=== PATIENT | male | born 1970 | race Caucasian/White ===

== ENCOUNTER 2018-12-12 08:27 | Emergency (ER) | payer OTHER, SELFPAY ==
[2018-12-12 08:28] VITALS: BP 145/101; PULSE 113; RESP 16; TEMP 36.3; O2SAT 100; BMI 22.7
--- NOTE | 2018-12-12 08:56 | ED.DCSUM_ITS ---
- ER Visit Summary Date of Service: 12/12/18 Chief Complaint: Multiple complaints History of Present Illness: The patient is a 48 M who presents the emergency department stating that he has multiple issues and reasons for being here. He states that none of them are a true emergency but he does not have a primary care physician so here I am. First he states that a year ago he got into a [employer] plant and got thorns in his skin. He states they are still coming out of him. States he has a friend that was a [place] medic who tells him that he should put lotion on to help soften the skin and then to come out. He states that the pain is unbearable after this year of dealing with that he wants it o ut. Second issue is that he had to walk 10 miles yesterday and states that he feels like he got heat exhaustion. He states he has been drinking water and his headache is better but he still feels lightheaded. Third issue is that for the past several years she has had epigastric pain. Certain foods make it worse. He states he thought it was stomach ulcers but the other day it was significantly worse. He has been taking Tums. No chest pain shortness of breath. He is a smoker. Denies any history of pancreatitis. Physical Examination: Afebrile vital signs stable Gen: Well-nourished well-developed Head: Normocephalic atraumatic Eyes: Perrl EOMI ENT: TMs clear no rhinorrhea moist mucous membranes Neck: Supple no lymphadenopathy no JVD nontender CVS: Regular rate rhythm no murmurs normal S1-S2 Respiratory: No distress clear to auscultation bilaterally chest nontender Abdomen: Soft nontender nondistended normal bowel sounds no masses Back: Nontender Extremity: Nontender no edema Skin: Normal color no rash Neuro: alert orientated ?3 CN II-XII intact normal strength sensation reflexes gait cerebellar Psych: Normal affect normal mood Test Results: White blood cell count is normal. Chemistries with a creatinine 1.64. Lipase is 410. Total body CK 155. CT and pelvis negative. Emergency Department Course and Treatment: IV fluids. Patient decided that he did not wish to wait for results so he decided to leave. He did sign out AMA. Impression: 1. Lightheadedness 2. GERD 3. Elevated lipase 4. Left AGAINST MEDICAL ADVICE This note was generated with Dragon dictation software. It may contain incorrect words, spelling, and punctuation that were not noted in review of the chart prior to signing ED Disposition - Plan for ED Patient: Disposition: Against Medical Advice Referrals: NOT,DEFINED [NON-STAFF] -
[2018-12-12 09:21] LABS: Absolute Lymphocyte Count 3.23 X10^3/ul (0.83-4.51); Absolute Neutrophil Count 4.9 X10^3/uL (2.0-7.7); Basophil# 0.03 X10^3/uL; Basophil% 0.3 % (0-1); Eosinophil# 0.33 X10^3/uL; Eosinophils% 3.5 % (0-5); Hematocrit 43.3 % (40-54); Hemoglobin 14.6 g/dl (13.0-16.5); Lymphocyte # 3.23 X10^3/ul (4.0); Mean Corp Hgb Conc 33.7 g/gl (32-36); Mean Corpuscular Hgb 27.5 pg (27.0-32.0); Mean Corpuscular Volume 81.7 fL (80-94); Mean Platelet Vol. 8.3 fl (6.2-12.0); Monocyte# 0.94 X10^3/uL; Monocyte% 9.9 % (0-10); Neutrophil # 4.94 X10^3/uL (2.7-7.7); Neutrophil % 52.1 % (47-70); Platelet Count 287 K/mm3 (150-450); RBC Distribution Width CV 14.8 % (11.6-14.6); RBC Distribution Width SD 44.8 fl (35.1-43.9); White Blood Count 9.5 K/mm3 (4.4-11.0)
[2018-12-12] MEDS: 0.9% Normal Saline 1,000 ML 1000 ML IV (09:21)
[2018-12-12 09:24] LABS: POSITIVE COUNT NO; POSITIVE DIFFERENTIAL NO; POSITIVE MORPHOLOGY NO
[2018-12-12 09:38] LABS: AST(SGOT) 18 U/L (15-37); Alanine Aminotransfer ALT/SGPT 20 U/L (16-61); Albumin, Serum 3.2 g/dL (3.2-5.0); Alkaline Phosphatase 85 U/L (45-117); Anion Gap 8 (5-15); BUN 16 mg/dL (7-18); BUN/Creat Ratio 9.8 RATIO (10-20); Bilirubin, Direct 0.05 mg/dL (0.00-0.30); CPK Total, Creatine Kinase 155 U/L (39-308); Chloride 102 mmol/L (98-107); Creatinine, Serum 1.64 mg/dL (0.70-1.30); EST Glomerular Filtration Rate 48 mL/min (>60); Est Glom Filt Rate - Afr Amer 58 mL/min (>60); Globulin 4.6 g/dL (2.2-4.2); Glucose 109 mg/dL (74-106); Lipase 410 U/L (73-393); Potassium 3.4 mmol/L (3.5-5.1); Protein, Total 7.8 g/dL (6.4-8.2); Sodium Level 138 mmol/L (136-145)
--- NOTE | 2018-12-12 09:47 | CT_ITS ---
STUDY: CT ABDOMEN AND PELVIS WITHOUT CONTRAST REASON FOR EXAM: Male, 48 years old. Abdominal pain. Elevated lipase levels. RADIATION DOSAGE (If Supplied By Facility): CTDIvol = ( 8.03 ) mGy, DLP = ( 310.38 ) mGycm TECHNIQUE: Transaxial images were obtained from the dome of the diaphragm to the symphysis pubis without oral contrast, and without intravenous contrast. Sagittal and coronal images were reconstructed. Individualized dose optimization techniques were used for this CT. COMPARISON: None. FINDINGS: The visualized lung bases are unremarkable. The visualized portions of the heart are within normal limits. Normal liver. The gallbladder is contracted. Normal spleen. Normal pancreas. Normal bilateral adrenal glands. Normal right kidney. Subcentimeters cyst in the upper pole of the left kidney. Normal visualized stomach. Normal small intestine. Normal colon. The appendix is visualized and appears normal. There is scattered atherosclerotic calcification of the abdominal aorta, without a demonstrated aneurysm. Normal inferior vena cava. Normal retroperitoneum. Normal urinary bladder. Normal abdominal wall. Normal osseous structures. CT/Abdomen/Pelvis W IV Cont ONLY IMPRESSION: Normal unenhanced CT of the abdomen and pelvis. Electronically Signed: Jimenez Flores, at 10:56 EDT , Service support ,
== END 2018-12-12 11:11 | disposition left against medical advice (07) ==
PROVIDERS: Emergency Provider Emergency Medicine
DX: R42 Dizziness and giddiness (principal); K21.9 Gastro-esophageal reflux disease without esophagitis; R74.8 Abnormal levels of other serum enzymes; F17.200 Nicotine dependence, unspecified, uncomplicated
CPT/HCPCS: 74177; 80048; 80076; 82550; 83690; 85025; 96360; 99282; J7030; Q9967; A4216

== ENCOUNTER 2019-08-02 10:30 | Emergency (ER) | payer SELFPAY ==
[2019-08-02 10:31] VITALS: BP 161/107; PULSE 124; RESP 16; TEMP 36.6; O2SAT 99; BMI 22.6
--- NOTE | 2019-08-02 10:43 | RAD_ITS ---
STUDY: X-RAY - RIGHT HAND REASON FOR EXAM: Male, 49 years old. Injury Gabo, pain mid posterior hand EXAM DESCRIPTION: CLINICAL HISTORY: 49 years Male, Injury Gabo, pain mid posterior hand COMPARISON: None FINDINGS: Studies of the right hand in 3 projections shows no evidence of fracture, dislocation, or bony destruction. RAD/Hand Min 3 Views IMPRESSION: Normal right hand. Electronically Signed: Raheel Lulu, at 11:12 EST Tel , Service support ,
--- NOTE | 2019-08-02 10:58 | ED.VISSUMM ---
- ER Visit Summary Date of Service: 08/02/19 Chief Complaint: [Injury to right hand] History of Present Illness: The patient is a 49 M [presents the emergency department with an injury to the right hand that occurred 5 days ago. Patient states that he was splitting wood outside with an ax and developed some discomfort in the hand that he thought it was related to just being cold. Patient developed some swelling in the hand. Patient states the swelling is gone down but continues to have pain when flexing and extending his digits. 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 He is right-hand dominant. Patient states that he has had prior fracture of the right hand about 10 years ago. Patient otherwise has no medical history.] Physical Examination: [HEENT-PERRLA, EOMI. Cranial nerves II through XII grossly intact. TMs clear. Mucous membranes moist. No adenopathy. Cardiovascular-regular rate and rhythm without murmur or ectopy Lungs-clear to auscultation, chest wall stable without crepitus or subcu emphysema Abdomen-normoactive bowel sounds, soft, nontender, no rebound or rigidity, no peritoneal signs. Extremities-intact ?4, normal range of motion, normal pulses, atraumatic. Right hand-there is a mild soft tissue swelling over the dorsum of the right hand over the areas of the third and fourth metacarpal bases. No ecchymosis or bruising noted. Patient has normal flexion-extension of all digits. He has normal sensation.] Test Results: [X-rays of the right hand read by myself as no acute fractures.] Emergency Department Course and Treatment: [Patient will be given an Anthony wrap. Patient was given a prescription for naproxen. Patient will be given a referral to orthopedics for follow-up.] Treatment Plan: [Follow-up with orthopedics in 5 to 7 days.] Disposition: [Discharged home in stable condition.] Impression: [Right hand sprain] This note was generated with [employer] dictation software. It may contain incorrect words, spelling, and punctuation that were not noted in review of the chart prior to signing ED Disposition - Plan for ED Patient: Referrals: Care Physician,No Primary [Primary Care Provider] -
--- NOTE | 2019-08-02 11:02 | ED.DEP ---
ED Disposition - Plan for ED Patient: Instructions: Sprain Hand Prescriptions: Naproxen [Naprosyn] 500 mg PO BID PRN #20 tab Transmission Status: Pending to [id number] Referrals: Care Physician,No Primary [Primary Care Provider] - Mikael Franklin DO [STAFF PHYSICIAN] - 5-7 Days
== END 2019-08-02 11:09 | disposition home or self-care (01) ==
PROVIDERS: Emergency Provider Emergency Medicine
DX: S63.91XA Sprain of unspecified part of right wrist and hand, initial encounter (principal); X50.3XXA Overexertion from repetitive movements, initial encounter; Y93.89 Activity, other specified; Y92.9 Unspecified place or not applicable; Y99.9 Unspecified external cause status
CPT/HCPCS: 73130; 99282